=== PATIENT | male | born 1955 | race Caucasian/White ===

== ENCOUNTER → 2017-02-20 | Outpatient (CLI) | payer BC ==
[~2017-02-20] MED LIST: ASPEC325 PO; CLC6 PO; CLTP PO; INDO25CA14 PO; METO100T14 PO; MULT-506 PO; NTRGSL/4 SL; PRT40 PO; SIMV10TA2 PO
[2017-02-20 10:19] LABS: CHOLESTEROL/HDL RATIO 2.1
== END | disposition home or self-care (01) ==
LOC: C.LAB 08:40
PROVIDERS: ATTEND Internal Medicine Cardiovascular Disease
DX: I25.10 Atherosclerotic heart disease of native coronary artery without angina pectoris (principal)

== ENCOUNTER → 2017-03-25 | Outpatient (CLI) | payer BC | END | disposition home or self-care (01) | LOC: C.LABPVFM 15:24 | PROVIDERS: ATTEND Neuromusculoskeletal Medicine & OMM | DX: R19.7 Diarrhea, unspecified (principal); R10.31 Right lower quadrant pain ==

== ENCOUNTER → 2017-08-22 | Outpatient (CLI) | payer BC ==
[2017-08-22 09:49] LABS: AST/SGOT 22 U/L (15-37); BLOOD UREA NITROGEN 16 mg/dl (7-18); BUN/CREATININE RATIO 17.6 (10-20); CALCIUM 9.1 mg/dl (8.5-10.1); CARBON DIOXIDE 31 mmol/L (21-32); CHLORIDE 102 mmol/L (98-107); CREATININE 0.92 mg/dl (0.60-1.40); GLUCOSE 93 mg/dl (70-99); POTASSIUM 4.2 mmol/L (3.5-5.1); SODIUM 141 mmol/L (136-145)
[2017-08-22 09:52] LABS: ALT/SGPT 40 U/L (12-78); CHOLESTEROL 150 mg/dl (0-200); HDL CHOLESTEROL 75 mg/dl; LDL CHOLESTEROL CALCULATED 59 mg/dl; TRIGLYCERIDES 82 mg/dl (0-150); VERY LOW DENSITY LIPOPROT CALC 16 mg/dl
== END | disposition home or self-care (01) ==
LOC: C.LAB 08:19
PROVIDERS: ATTEND Internal Medicine Cardiovascular Disease
DX: I10 Essential (primary) hypertension (principal); I25.10 Atherosclerotic heart disease of native coronary artery without angina pectoris

== ENCOUNTER 2019-11-14 15:50 | Inpatient (IN) ==
[2019-11-14 16:37] LABS: Basophils # (auto) 0.03 K/uL (0-0.2); Basophils % (auto) 0.3 %; Eosinophils # (auto) 0.19 K/uL (0-0.5); Eosinophils % (auto) 2.1 %; Hemoglobin 15.6 g/dL (14.0-18.0); Immature Granulocytes # (auto) 0.02 K/uL (0.00-0.02); Immature Granulocytes % (auto) 0.2 %; Lymphocytes # (auto) 2.38 K/uL (1.2-3.4); Lymphocytes % (auto) 26.3 %; Mean Corpuscular Hemoglobin 31.3 pg (25-34); Mean Corpuscular Hgb Conc 34.7 g/dL (32-36); Mean Corpuscular Volume 90.4 fL (80-100); Monocytes # (auto) 0.68 K/uL (0.11-0.59); Monocytes % (auto) 7.5 %; Neutrophils # (auto) 5.74 K/uL (1.4-6.5); Neutrophils % (auto) 63.6 %; Platelet Count 300 K/uL (130-400); RDW Coefficient of Variation 14.4 % (11.5-14.5); RDW Standard Deviation 47.7 fL (36.4-46.3); Red Blood Count 4.98 M/uL (4.7-6.1); White Blood Count 9.04 K/uL (4.8-10.8)
--- NOTE | 2019-11-14 16:43 | XRay Report ---
XR chest 1V portable CLINICAL HISTORY: Chest Pain COMPARISON STUDY: Chest CT January 04, 2019. FINDINGS: Lung volumes are normal. Lungs are clear. There is no pneumothorax or pleural effusion. Car diac size is normal. Mediastinal contours are normal. There is no evidence for pulmonary edema. Note is made of median sternotomy wires and mediastinal surgical clips. IMPRESSION: No acute cardiopulmonary findings. ACT 112: Negative or not required by law. Electronically signed by: Danial Benson M.D. 11/14/2019 4:42 PM
[2019-11-14 16:48] LABS: INR 1.1 (0.9-1.1); Partial Thromboplastin Ratio 0.9; Partial Thromboplastin Time 24.4 Seconds (21.0-31.0); Prothrombin Time 10.9 Seconds (9.0-12.0)
[2019-11-14 16:56] LABS: Albumin Level 3.8 gm/dl (3.4-5.0); BUN Creatinine Ratio 15.3 (10-20); Calcium 8.9 mg/dl (8.5-10.1); Creatinine Clr Calc Pharmacy 62.5 ml/min; Est GFR (African American) 81.5; Est GFR (Non-African American) 70.4; Potassium 4.3 mmol/L (3.5-5.1)
[2019-11-14 17:19] LABS: Albumin Globulin Ratio 0.9 (0.9-2); Bilirubin,Total 0.4 mg/dl (0.2-1); Creatine Kinase MB 8.9 ng/ml (0.5-3.6); Globulin 4.1 gm/dl (2.5-4.0); Total Protein 7.9 gm/dl (6.4-8.2); Troponin I 3.58 ng/ml (0-0.045)
[2019-11-14] MEDS ORDERED: HEPARIN SODIUM/DEXTROSE 25,000 UNITS/500 ML BAG IV SCH (17:30)
[2019-11-14] MEDS ORDERED: HEPARIN SOD (PORCINE) 1000 UNIT/ML 10 ML VIAL ONE (17:39)
--- NOTE | 2019-11-14 18:08 | History & Physical Report ---
Date of Service November 14, 2019 Assessment & Plan (1) Non-ST elevation myocardial infarction (NSTEMI): Chest pain started around 9am today. Persistency worse around 3pm. Out of cardiac chest pain around 7:30pm after morphine given. Interestingly no EKG changes on initial EKG although possibly some developing ST depression in lateral leads on repeat. Patient already on heparin drip with bolus from ER Despite x2 nitroglycerin from ER 0.4mg SL he was still in 6/10 pain when seen. Given additional nitroglycerin 0.4mg SL and pain down to 5/10. Morphine 4mg IV eliminated pain from his neck, shoulder and arm but left with epigastric tightness (more gastrointestinal sounding pain). Discussed with ICU PA and he will be admitted to ICU and started on nitroglycerin drip. Troponin up trending - discussed with Dr Girard and recommended discussing with interventionalist regarding Brilinta Discussed with Dr Link and will starting Brilinta at this time in addition to nitro drip as above - since patient chest pain free at this point, no need for intervention emergently. (2) Gastritis: Epigastric pain left after morphine taken away chest pain and radiating pain to neck and arm. GI cocktail given with complete relief of epigastric pain. Will start on famotidine 20mg IV now then daily. (3) Peripheral vascular disease: Noted history of this. DP/PT b/l easily palpable. (4) Hypercholesterolemia: Continue simvastatin, will defer to cardiology to increase to high intensity statin as suspect there is a reason he is not on one already. (5) Osteoporosis: Hold calcium supplementation at this time. History of Present Illness Chief Complaint: Chest pain Primary Care Provider: JASMIN Gilbert Jeffrey is a 64 year old male with known CAD who presents to the ER with central chest pain that was not resolving. His pains started 2 days prior on exertion when shovelling the drive way. They went away with rest but he continued to shovel the drive way and kept working through some of the pain. The following morning he felt generally worse and sluggish for about half the day. He also had some burning sensation in his chest at rest at that point which was persistent for hours but eventually relieved without intervention. This morning he started having more intense chest pain again with rest starting at 9am but would resolve. At 3pm he had more intense severity 9/10 crushing chest pain at rest that radiated to his arm, shoulder and neck. In the ER he was given x2 nitroglycerin 0.4mg SL which brought his pain down to 6/10. He was started on a low dose heparin IV drip with bolus. When see by myself he was still having chest pain at rest radiating to his neck/shoulder/left arm. Third nitroglycerin given with only small relief. Morphine 4mg IV given with complete relief of his radiation substernal chest pain. Left with burning epigastric tightness which was subsequently relieved with GI cocktail. He has an extensive cardiac history with TX and x2 ZOEY to LAD and circumflex. CABGx5 in 2003. Interestingly he feels this episode is very similar to his episode of myopericarditis in 2014 although this pain (as was his pain back then apparently) was not positional in any way. Allergies Allergy/AdvReac Type Severity Reaction Status Date / Time No Known Allergies Allergy Verified 11/14/19 16:39 Home Medications Home Medications Medication Instructions Recorded Confirmed Type calcium carbonate-vitamin D3 1 tab PO QAM 12/18/18 11/14/19 History [Caltrate 600 + D] aspirin 325 mg tablet 325 mg PO DAILY tab 06/09/19 11/14/19 History metoprolol tartrate 100 mg tablet 100 mg PO BID #90 tab 06/28/19 11/14/19 Rx simvastatin 10 mg tablet 10 mg PO HS #90 tab 06/28/19 11/14/19 Rx Past Med/Surg History Medical History CAD (coronary artery disease) (Acute) Essential hypertension (Acute) Hypercholesterolemia (Acute) Hypothyroidism (Acute) Myopericarditis (2015) Osteoporosis (Acute) Peripheral vascular disease (Acute) Surgical History S/P CABG x 5 (2003) Social History Preferred Language: Irish Infrastructure Tech Required: No Beliefs That Will Affect Care: None Current Living Situation: Alone Feels Safe at Home: Yes Safety Concerns: Feels Safe At This Time Smoking Status: Never smoker Hx Alcohol Use: Yes Alcohol type: beer and wine Hx Substance Use: No Seatbelt Use: always Review of Systems Review of Systems: All systems reviewed & are unremarkable except as noted in HPI & below Physical Exam Constitutional: well developed and + acute distress (substernal chest pain); + not well nourished Eyes: + anicteric sclerae; normal pupil size ENMT: external ear and nose normal, oropharynx normal Neck: trachea midline, no thyromegaly Respiratory: normal respiratory effort, lungs clear to auscultation Cardiovascular: Rate/Rhythm: regular rate and regular rhythm Heart Sounds: normal S1 and normal S2; no gallop, no murmur and no cardiac rub Vessels: posterior tibial pulses present, dorsalis pedis pulses present and radial pulses present; no JVD Extremities: normal capillary refill; no calf tenderness and no pedal edema Gastrointestinal (Abdomen): Inspection/Auscultation: abdomen normal to inspection and normal bowel sounds; abdomen not distended Percussion/Palpation: + abdomen tender (epigastric) and abdomen soft; no guarding and abdomen not rigid Musculoskeletal: no cyanosis or clubbing, extremities motor strength 5/5 Skin: no rashes, warm and dry Neurologic: moves all extremities and awake; no focal motor deficits and not confused Speech / Cognition: normal speech Motor/Sensory: no tremor and no pronator drift Psychiatric: A+Ox3, euthymic affect Lymphatic: no cervical or axillary lymphadenopathy Results & Data Vital Signs (Past 12 Hours) Vital Signs Temp Pulse Resp BP Pulse Ox 11/14/19 16:13 99 11/14/19 16:00 36.6 C 78 22 138/86 98 Diagnostic Findings XR chest 1V portable IMPRESSION: No acute cardiopulmonary findings. ECG Indication: chest pain Rate (beats per minute): 68 Rhythm: normal sinus Findings: no acute ischemic change Comparison ECG Date: from (12/18/2018) Change: no significant change Code Status & VTE Plan Code Status Full as discussed with the patient VTE Prophylaxis Plan VTE Prophylaxis will be ordered: Yes Critical Care Time Critical Care Time: Yes Total Critical Care Time: 50 PG Care Time/CCT Total # of Minutes Spent Total Time Spent: 110 Total Time Spent with Patient: Total time spent is greater than 50% in coordination of care (as documented) at patient's floor/unit and/or counseling patient: Critical Care Time: Yes Total Critical Care Time: 50 Coding Level of Care Code 33393 Initial Inpt Care Lvl 3 Diagnoses Non-ST elevation myocardial infarction (NSTEMI) I21.4 Gastritis K29.00 Chronicity: acute Gastritis bleeding: without bleeding Gastritis type: unspecified gastritis Peripheral vascular disease I73.9 Hypercholesterolemia E78.00 Osteoporosis M81.0 Osteoporosis type: unspecified Presence of current pathological fracture: without current pathological fracture Additional Codes Critical Care Time - Critical Care Time: Yes ([id number]) (1) Osteoporosis Osteoporosis type: unspecified Presence of current pathological fracture: without current pathological fracture Qualified Code(s): M81.0 - Age-related osteoporosis without current pathological fracture (2) Gastritis Chronicity: acute Gastritis bleeding: without bleeding Gastritis type: unspecified gastritis Qualified Code(s): K29.00 - Acute gastritis without bleeding
[2019-11-14] MEDS ORDERED: NITROGLYCERIN SL 0.4 MG/TAB TAB SL STA (18:30)
[2019-11-14] MEDS ORDERED: MoRPHine SULFATE 4 MG/ML 1 ML CARP\\VIAL IV STA (18:30)
[2019-11-14] MEDS ORDERED: NITROGLYCERIN/D5W 100MCG/ML 250 ML IV SCH (19:15)
[2019-11-14] MEDS ORDERED: ALUMINUM/MAGNESIUM SUSP 18 ML, LIDOCAINE HCL VISCOUS 2% 6 ML, BARCODE IDENTIFIER 1 EA PO ONE (19:19)
[2019-11-14] MEDS ORDERED: FAMOTIDINE 20 MG in SYRINGE 3 ML IV STA (19:20)
[2019-11-14] MEDS ORDERED: MoRPHine SULFATE 2 MG/ML CARP IV PRN ×2 (19:23)
[2019-11-14] MEDS ORDERED: MoRPHine SULFATE 4 MG/ML 1 ML CARP\\VIAL IV PRN (19:23)
[2019-11-14] MEDS ORDERED: TICAGRELOR 90 MG TAB PO ONE (19:43)
[2019-11-14] MEDS ORDERED: ICU PROTOCOL FOR HYPERGLYCEMIA PRN (20:09)
--- NOTE | 2019-11-14 20:53 | Cardiology Consultation ---
Date of Consultation November 14, 2019 Assessment & Plan (1) Non-ST elevation myocardial infarction (NSTEMI): (2) CAD (coronary artery disease): Patient with known coronary artery disease (status post remote CABG) who also has a history of prior myopericarditis who now presents with chest pain, elevated troponin, and dynamic ECG. As noted, the picture was initially confusing given his completely normal ECG, however subsequent ECG showed some ST depression, strongly suggesting that this is ischemic chest pain rather than onset of a recurrent myopericarditis. Agree with the usual management including continuing aspirin, metoprolol, and simvastatin with initiation of ticagrelor (loading and routine dosing), heparin infusion, morphine as needed for pain, and IV nitroglycerin. Case discussed with Dr. Ruelas and Dr. Link (covering interventionalist). As noted, the patient will be medically managed overnight, if he were to develop progressive chest pain and ECG changes he should be sent for urgent cardiac catheterization. History of Present Illness Reason for Consultation: NSTEMI Requesting Physician: Garrett Ruelas MD Attending Physician: Garrett Ruelas MD History of Present Illness 64-year-old man with longstanding cardiac history admitted with chest pain, elevated troponin, and dynamic ECG changes. His cardiac history dates back to 1998 when he had a myocardial infarction and underwent stenting of his LAD and circumflex. In 2003 he underwent CABG x 5 as follows: -ZELAYA to LAD -Saphenous vein graft to first diagonal to distal LAD (jump graft) -Saphenous vein graft to OM1 -Saphenous vein graft to RCA In 2014 he was admitted to the hospital with chest pain, ultimately his troponin peaked at 7.7 and he developed ECG changes consistent with pericarditis, treated with colchicine and indomethacin with good response. Echocardiogram at that time showed EF 50 to 55% with no wall motion abnormalities. He was felt to have had a viral myopericarditis. He has been followed closely by Dr. Mcmahon and has been clinically stable for the past 5 years. He was doing well and physically active with no symptoms until 2 days ago when he developed some chest discomfort recurring intermittently. Today his symptoms became more severe and began radiating down his left arm, he tried to go for a walk but was stopped by chest pain and breathlessness. He presented to the ER with ongoing chest pain (up to 6/10 severity), an initial troponin of 3.5, and an initially unremarkable ECG. Given his past history, there was uncertainty as to whether this would be another presentation of myopericarditis (he noted very similar symptoms at that time) or myocardial ischemia. He was already on aspirin, he was treated with morphine, heparin drip, and ticagrelor and now notes that his chest pain has resolved, he has only mild epigastric burning (1/10) remaining. Of note, a second ECG showed anterolateral ST depression. Since the patient has shown marked clinical improvement since his presentation, will manage medically overnight with a low threshold for emergent catheterization if he has increasing pain with progressive ECG changes. Allergies Allergy/AdvReac Type Severity Reaction Status Date / Time No Known Allergies Allergy Verified 11/14/19 16:39 Home Medications Home Medications Medication Instructions Recorded Confirmed Type calcium carbonate-vitamin D3 1 tab PO QAM 12/18/18 11/14/19 History [Caltrate 600 + D] aspirin 325 mg tablet 325 mg PO DAILY tab 06/09/19 11/14/19 History metoprolol tartrate 100 mg tablet 100 mg PO BID #90 tab 06/28/19 11/14/19 Rx simvastatin 10 mg tablet 10 mg PO HS #90 tab 06/28/19 11/14/19 Rx Patient History Medical History (Updated 11/14/19 @ 21:32 by Rodrigo Girard MD) CAD (coronary artery disease) (Acute) Essential hypertension (Acute) Hypercholesterolemia (Acute) Hypothyroidism (Acute) Myopericarditis (2015) Osteoporosis (Acute) Peripheral vascular disease (Acute) Surgical History (Updated 11/14/19 @ 21:20 by Rodrigo Girard MD) S/P CABG x 5 (2003) Social History Preferred Language: Greenlandic Endoscopy Tech Required: No Beliefs That Will Affect Care: None Current Living Situation: Alone Feels Safe at Home: Yes Safety Concerns: Feels Safe At This Time Smoking Status: Never smoker Hx Alcohol Use: Yes Alcohol type: beer and wine Hx Substance Use: No Seatbelt Use: always Review of Systems Constitutional: no fever, no chills, no fatigue, no weight loss and no weight gain Eyes: no problem reported Ear, Nose, Mouth, Throat: no problem reported Respiratory: no cough and no dyspnea Cardiovascular: as per Subjective / HPI Gastrointestinal: no abdominal pain and no change in stools Musculoskeletal: no myalgia Integumentary: no rash and no new lesions Neurologic: no falls and no syncope Psychiatric: no problem reported Hematologic / Lymphatic: no easy bleeding and no easy bruising Physical Exam Physical Exam: No distress. Skin: no ecchymoses or generalized lesions. HEENT: unremarkable. Neck: no JVD or carotid bruits. Lungs clear. Cardiac: regular rhythm and no murmur or gallop. No rub. Abdomen benign. Extremities: no edema, pulses brisk. Neurologic: normal affect, nonfocal. Results & Data Laboratory Results 11/14/19 11/14/19 16:15 18:57 Creatinine 1.09 Total Creatine Kinase 183 CK-MB (CK-2) 8.9 H Troponin I 3.580 H* 4.060 H* Diagnostic Findings Initial ECG at 4 PM showed sinus rhythm and was completely unremarkable. A second ECG near 7 PM showed [address] depression. Neither ECG showed any ST elevation. PG Care Time/CCT Total # of Minutes Spent Total Time Spent with Patient: Total time spent is greater than 50% in coordination of care (as documented) at patient's floor/unit and/or counseling patient: Coding Level of Care Code 77660 Inpt Consult Level 4 Diagnoses Non-ST elevation myocardial infarction (NSTEMI) I21.4 CAD (coronary artery disease) I25.10
[2019-11-14] MEDS: METOPROLOL TARTRATE 100 MG TAB PO SCH (20:54)
--- NOTE | 2019-11-14 21:06 | Critical Care Consultation ---
Date of Consultation November 14, 2019 Assessment & Plan (1) Admitted to intensive care unit: Reason Critically Ill: 64-year-old male with significant history of cardiovascular disease status post CABG x5 presenting with ongoing chest discomfort with elevated troponin without significant EKG changes. Requiring heparin and nitroglycerin drips for symptomatic management. Requiring close hemodynamic monitoring. NEURO - * CAM ICU: NEGATIVE * Pain: Titrate nitroglycerin as needed. Morphine as needed. CARDIAC/VASCULAR - * NSTEMI: * Concerning in the setting of known significant CAD s/p PTCI --> CABG x5. * Climbing troponins. Will continue to trend. * Heparin and Nitro gtts currently. * Monitor closely for pain/EKG changes to suggested need for emergent intervention. * Appreciate cardiology recommendations. * EKG: NSR@72bpm w/ slight ST depressions laterally. QTc 427ms. * Monitor on telemetry. RESPIRATORY - * No h/o pulmonary disease. * Saturating well on room air. GI/NUTRITION - * AHA diet RENAL/LYTES - * No significant electrolyte derangements. - * No concerns at this time. * Strict I&Os. ENDO - * No h/o DM * BSGs per unit protocol. ISS --> gtt per unit policy. HEME - * Stable H&H. * Monitor for s/s bleeding while on heparin gtt. ID - * Pervious h/o myopericarditis. * Hx not concerning for return of s/s at this time. EKG more suggestive of ischemic etiology of pain. * Trend fever curve. LINES/IV ACCESS - * PIVs x2 DVT PROPHYLAXIS - * Heparin gtt. * SCDs I have personally spent 35 minutes of critical care time in the direct management of this patient. This is a life/limb threatening event. This includes time spent evaluating patient, direct bedside care, chart review, placing orders, interpretation of diagnostic studies, discussion with consultants, patient, and family members, as well as other required patient management activities. This time is exclusive of all separately billable procedures, and teaching time and separate from and in addition to any other critical care service time. Thank you for allowing us to participate in the care of this patient. Please refer to my attending physician's documentation for any further recommendations. (2) Non-ST elevation myocardial infarction (NSTEMI): (3) Chest pain: (4) Elevated troponin: (5) Peripheral vascular disease: (6) Hypothyroidism: (7) Hypercholesterolemia: (8) Essential hypertension: (9) CAD (coronary artery disease): History of Present Illness Attending Physician: Garrett Ruelas MD History of Present Illness Patient is a 64-year-old male with significant past medical history of coronary artery disease, hypertension, hyperlipidemia, hypothyroidism, and peripheral vascular disease who presented to the emergency department with central chest pain with radiation to the LEFT-sided shoulder and arm. Patient initially underwent PTCI in [id number] with CABG x5 in 2004. In 2015, the patient had myopericarditis for which she has had no residual complications to this point. He states that his symptoms today feel similar to his myopericarditis presentation. The patient was without significant EKG changes on presentation. He was noted to have some slight ST depression laterally on repeat EKG with persistent chest pain. His troponin was elevated at greater than 2. He did receive discomfort relief with combination of nitroglycerin drip and PRN morp ben. He is without ST segment elevations at this time. Upon arrival in the ICU, the patient is awake, alert, and oriented. He reports that he has been noticing occasional "stingers" of central chest pain which occur randomly with activity. He states that on Friday he had felt fine, but on Friday and Friday he was shoveling snow and noticed persistent non-remitting central chest pain with radiation to the LEFT-sided jaw and arm. This prompted visit today. Patient states that this point he is without any chest pain rating his discomfort is 0/10. He denies any recent upper respiratory infections. No fevers or chills. No nasal congestion or cough. He currently denies any headaches, dizziness, lightheadedness, palpitations, shortness of breath, pleuritic pain, nausea, vomiting, abdominal pain, or numbness/weakness to the extremities. Allergies Allergy/AdvReac Type Severity Reaction Status Date / Time No Known Allergies Allergy Verified 11/14/19 16:39 Home Medications Home Medications Medication Instructions Recorded Confirmed Type calcium carbonate-vitamin D3 1 tab PO QAM 12/18/18 11/14/19 History [Caltrate 600 + D] aspirin 325 mg tablet 325 mg PO DAILY tab 06/09/19 11/14/19 History metoprolol tartrate 100 mg tablet 100 mg PO BID #90 tab 06/28/19 11/14/19 Rx simvastatin 10 mg tablet 10 mg PO HS #90 tab 06/28/19 11/14/19 Rx Patient History Medical History CAD (coronary artery disease) (Acute) Essential hypertension (Acute) Hypercholesterolemia (Acute) Hypothyroidism (Acute) Myopericarditis (2015) Osteoporosis (Acute) Peripheral vascular disease (Acute) Surgical History S/P CABG x 5 (2004) Social History Preferred Language: Korean Pediatric Hospitalist Required: No Beliefs That Will Affect Care: None Current Living Situation: Alone Feels Safe at Home: Yes Safety Concerns: Feels Safe At This Time Smoking Status: Never smoker Hx Alcohol Use: Yes Alcohol type: beer and wine Hx Substance Use: No Seatbelt Use: always Review of Systems Review of Systems: A complete 10 point review of systems was reviewed with the patient with pertinent positives and negatives as per history of present illness. All else were negative. Physical Exam Physical Exam: VITAL SIGNS - Vital signs and nursing notes were reviewed. GENERAL - 64-year-old male appearing younger than his stated age who is in no acute distress. Communicates well with provider and answers questions appropriately. HEAD - NC/AT. EYES - PERRL with EOMI bilaterally. Sclera anicteric. Palpebral conjunctiva pink and moist with no injection noted. EARS - No deformities of external structures noted on gross examination bilaterally. NOSE - Midline and without cyanosis. No epistaxis or purulent drainage noted. MOUTH/OROPHARYNX - Without perioral cyanosis. Buccal mucosa pink and moist and without leukoplakia. Tongue midline with equal elevation of palate bilaterally. No tonsillar hypertrophy, erythema, or exudates noted. Good dentition noted. NECK - Neck with FROM. Supple to palpation without JVD. LUNGS - Chest wall symmetric without accessory muscle use, intercostals retractions, or central cyanosis. Normal vesicular breath sounds CTA B/L. No wheezes, rales, or rhonchi appreciated. CARDIAC - RRR with S1/S2. No murmur, rubs, or gallops appreciated. No reproducible tenderness to palpation appreciated over the anterior chest wall. ABDOMEN - Abdominal contour flat without pulsations or visible masses. BS nor moactive all four quadrants. No tenderness, palpable masses, hepatosplenomegaly, or ascites noted. EXTREMITIES - No clubbing or peripheral cyanosis. No pretibial edema present. +3/5 radial and dorsalis pedis pulses palpated throughout. +5/5 strength noted in UE/LE bilaterally. NEUROLOGIC - Cranial nerves II through XII grossly intact. Sensory intact to light touch throughout. PSYCH - A&Ox3 and cooperates fully with examiner. Pt is very pleasant and interacts well with examiner. Results & Data ([facility]) Vital Signs (Past 12 Hours) Vital Signs Temp Pulse Pulse Resp BP BP Pulse Ox 11/14/19 19:55 36.4 C L 73 18 139/90 99 11/14/19 19:41 72 18 131/85 97 11/14/19 19:06 77 18 130/80 97 11/14/19 18:56 73 18 127/78 96 11/14/19 18:42 73 20 142/88 H 99 11/14/19 18:30 69 20 151/87 H 99 11/14/19 18:00 71 12 134/82 100 11/14/19 17:42 70 22 133/85 99 11/14/19 17:18 74 19 138/86 99 11/14/19 16:13 99 11/14/19 16:01 73 22 138/86 99 11/14/19 16:00 36.6 C 78 22 138/86 98 Coding Level of Care Code Critical Care 1st 30-74 mins Diagnoses Admitted to intensive care unit Z78.9 Non-ST elevation myocardial infarction (NSTEMI) I21.4 Chest pain R07.9 Chest pain type: unspecified Elevated troponin R79.89 Peripheral vascular disease I73.9 Hypothyroidism E03.9 Hypercholesterolemia E78.00 Essential hypertension I10 CAD (coronary artery disease) I25.10 Time Spent (min) 35 (1) Chest pain Chest pain type: unspecified Qualified Code(s): R07.9 - Chest pain, unspecified
--- NOTE | 2019-11-14 22:23 | Emergency Department Note ---
Entered by Kathe Awad acting as a scribe for History of Present Illness General Chief complaint: Chest Pain Stated complaint: CHEST DISCOMFORT Time Seen by Provider: 11/14/19 16:05 History of Present Illness Provider complaint: chest pain Onset (ago): day(s) 2 Location: chest Radiation: neck and other (left shoulder) Pain Consistency: + other (episode) Maximum Pain Intensity: 6 Quality: + burning Relieved By: not by medication Associated symptoms: + denies other symptoms (abdominal pain) and + other (fatigued); no shortness of breath Treatments prior to arrival: other (324 mg Aspirin and 2 Nitroglycerin ) The patient is a 64 year old male who presents to the ED with complaints of an episode of chest pain that started 2 days ago. The patient describes the pain as a burning and states that it radiates into his left shoulder and neck. The patient notes that she feels much more fatigued than usual. The patient denies abdominal pain and shortness of breath. Per nursing staff, the patient received 324 mg Aspirin and 2 Nitroglycerin en route. The patient denies relief from these medications. Home Medications Home Medications Medication Instructions Recorded Confirmed Type calcium carbonate-vitamin D3 1 tab PO QAM 12/18/18 11/14/19 History [Caltrate 600 + D] aspirin 325 mg tablet 325 mg PO DAILY tab 06/09/19 11/14/19 History metoprolol tartrate 100 mg tablet 100 mg PO BID #90 tab 06/28/19 11/14/19 Rx simvastatin 10 mg tablet 10 mg PO HS #90 tab 06/28/19 11/14/19 Rx Allergies Allergy/AdvReac Type Severity Reaction Status Date / Time No Known Allergies Allergy Verified 11/14/19 16:39 Past Med/Surg History Medical History CAD (coronary artery disease) (Acute) Essential hypertension (Acute) Hypercholesterolemia (Acute) Hypothyroidism (Acute) Myopericarditis (2015) Osteoporosis (Acute) Peripheral vascular disease (Acute) Surgical History S/P CABG x 5 (2003) Social History Preferred Language: Sinhala 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 and A total of 10 systems reviewed and were otherwise negative Physical Exam Vital Signs Vital Signs - 24 hr 11/14/19 16:00 11/14/19 16:01 11/14/19 16:13 Temperature 36.6 C Temperature Source Oral Pulse Rate 78 73 Pulse Rate [Bilateral Apical] Pulse Rate from SpO2 Sensor 75 Pulse Rhythm Regular Pulse Strength Normal Respiratory Rate 22 22 Respiratory Effort / Characteristics Non-Labored Spontaneous Respiratory Depth Normal Respiratory Pattern Regular Blood Pressure 138/86 138/86 Blood Pressure [Right Arm] Blood Pressure Mean 103 101 Blood Pressure Mean [Right Arm] Blood Pressure Position Lying Pulse Oximetry 98 99 99 Oxygen Delivery Method Room Air Room Air Sepsis Recent Fever Within 48 Hours No Sepsis New/Unexplained Change in Mental Status No Sepsis Action Taken by Nursing No Action Required 11/14/19 17:18 11/14/19 17:42 11/14/19 18:00 Temperature Temperature Source Pulse Rate 74 70 71 Pulse Rate [Bilateral Apical] Pulse Rate from SpO2 Sensor 74 69 67 Pulse Rhythm Pulse Strength Respiratory Rate 19 22 12 Respiratory Effort / Characteristics Respiratory Depth Respiratory Pattern Blood Pressure 138/86 133/85 134/82 Blood Pressure [Right Arm] Blood Pressure Mean 101 110 110 Blood Pressure Mean [Right Arm] Blood Pressure Position Pulse Oximetry 99 99 100 Oxygen Delivery Method Sepsis Recent Fever Within 48 Hours Sepsis New/Unexplained Change in Mental Status Sepsis Action Taken by Nursing 11/14/19 18:30 11/14/19 18:42 11/14/19 18:56 Temperature Temperature Source Pulse Rate 69 73 Pulse Rate [Bilateral Apical] 73 Pulse Rate from SpO2 Sensor 71 72 Pulse Rhythm Pulse Strength Respiratory Rate 20 20 18 Respiratory Effort / Characteristics Respiratory Depth Respiratory Pattern Blood Pressure 151/87 H 142/88 H Blood Pressure [Right Arm] 127/78 Blood Pressure Mean 111 100 Blood Pressure Mean [Right Arm] 94 Blood Pressure Position Pulse Oximetry 99 99 96 Oxygen Delivery Method Room Air Sepsis Recent Fever Within 48 Hours Sepsis New/Unexplained Change in Mental Status Sepsis Action Taken by Nursing 11/14/19 19:06 Temperature Temperature Source Pulse Rate Pulse Rate [Bilateral Apical] 77 Pulse Rate from SpO2 Sensor Pulse Rhythm Pulse Strength Respiratory Rate 18 Respiratory Effort / Characteristics Respiratory Depth Respiratory Pattern Blood Pressure Blood Pressure [Right Arm] 130/80 Blood Pressure Mean Blood Pressure Mean [Right Arm] 96 Blood Pressure Position Pulse Oximetry 97 Oxygen Delivery Method Room Air Sepsis Recent Fever Within 48 Hours Sepsis New/Unexplained Change in Mental Status Sepsis Action Taken by Nursing GENERAL: Patient is awake, alert, and in no acute distress.Patient is resting comfortably and showing no signs of anxiety EYES: The conjunctivae are clear. The pupils are round and reactive. EARS, NOSE, MOUTH AND THROAT: The nose is without any evidence of any deformity. Mucous membranes are moist.Tongue is midline NECK: The neck is nontender and supple. RESPIRATORY: Normal respiratory effort is noted. There is no evidence of wheezing rhonchi or rales to auscultation. CARDIOVASCULAR: Regular rate and rhythm noted. There no murmurs rubs or gallops normal S1 normal S2 GASTROINTESTINAL: The abdomen is soft. Bowel sounds are present in all quadrants. Abdomen is nontender. MUSCULOSKELETAL/EXTREMITIES: There is no evidence of gross deformity. Full range of motion is noted in the hips and shoulders. SKIN: There is no obvious evidence of any rash. There are no petechiae, pallor or cyanosis noted. NEUROLOGIC: Patient is awake alert and oriented x3. Course Course 1607: Past medical records reviewed. The patient was evaluated in room A02. A complete history and physical exam was performed. 1724: I updated the patient on his test results at this time. He is resting comfortably. 1756: I discussed the patient's case with Dr. Chacorta HENAO Hospitalist. He will evaluate the patient for further management. 1802: I updated the patient on the plan for admission. He verbally agrees and understands. He states that he is still having pain after recieving Heparin. 1813: I discussed the patient's case with Dr. Martinez Cardiology. He recommends following Troponins. Consultations Consultation #1: I discussed the patient's case with Dr. Chacorta HENAO Hospitalist. He will evaluate the patient for further management. Time: 17:56 Consultation #2: I discussed the patient's case with Dr. Martinez Cardiology. He recommends following Troponins. Time: 18:13 Administered Medications Heparin Sodium/Dextrose (Heparin Sodium/Dextrose) 25,000 units in 500 mls @ 24 mls/hr IV .[id number] [facility]; Protocol Stop: 12/14/19 17:29 Last Titration: 11/15/19 00:16 Dose: 1,050 units/hr, 21 mls/hr Documented by: [id number] Cosigned by: [id number] Admin: 11/14/19 17:44 Dose: 1,200 units/hr, 24 mls/hr Documented by: [id number] Cosigned by: [id number] Nitroglycerin/Dextrose (Nitroglycerin/D5w 100 Mcg/Ml) 250 mls @ 3 mls/hr IV .Q24H [facility]; Protocol Stop: 12/14/19 19:14 Last Admin: 11/14/19 20:36 Dose: 5 mcg/min, 3 mls/hr Documented by: [id number] Cosigned by: [id number] Metoprolol Tartrate (Lopressor) 100 mg PO BID [facility] Stop: 12/14/19 20:59 Last Admin: 11/14/19 20:54 Dose: 100 mg Documented by: [id number] Discontinued Medications Al Hydrox/Mg Hydrox/Simethicone 18 ml/ Lidocaine HCl 6 ml/ BARCODE IDENTIFIER 1 ea 0 ml PO ONE ONE Stop: 11/14/19 19:20 Last Admin: 11/14/19 20:54 Dose: 24 ml Documented by: [id number] Heparin Sodium (Porcine) (Heparin Iv Bolus) Confirm Administered Dose 10,000 units .ROUTE .STK-MED ONE Stop: 11/14/19 17:40 Last Admin: 11/14/19 17:45 Dose: 5,000 units Documented by: [id number] Cosigned by: [id number] Heparin Sodium/Dextrose () 1 ea IV NOW STA; Protocol Stop: 11/14/19 17:23 Last Admin: 11/14/19 17:48 Dose: Not Given Documented by: [id number] Famotidine 20 mg/ Syringe 5 mls @ 2.5 mls/min IV ONE STA Stop: 11/14/19 19:21 Last Admin: 11/14/19 21:41 Dose: 2.5 mls/min Documented by: [id number] Morphine Sulfate (Morphine Sulfate) 4 mg IV NOW STA Stop: 11/14/19 18:31 Last Admin: 11/14/19 18:56 Dose: 4 mg Documented by: [id number] Nitroglycerin (Nitrostat) 0.4 mg SL NOW STA Stop: 11/14/19 18:31 Last Admin: 11/14/19 18:42 Dose: 0.4 mg Documented by: [id number] Ticagrelor (Brilinta) 180 mg PO ONE ONE Stop: 11/14/19 19:44 Last Admin: 11/14/19 20:54 Dose: 180 mg Documented by: [id number] Critical Care Time Critical Care Time: Yes Total Critical Care Time: 60 I have personally spent greater than 60 minutes of critical care time in the direct management of this patient. This includes bedside care, interpretation o f diagnostic studies, and testing, discussion with consultants, patient, and family members, and other required patient management activities. This 60 minutes is in excess of all separately billable procedures. Medical Decision Making Differential Diagnosis Differential diagnosis: Etiologies such as shingles, musculoskeletal pain, pericarditis, myocarditis, cardiac ischemia, pericardial tamponade, pneumonia, pneumothorax, pleural effusion, hemothorax, pleurisy, aortic pathology, pulmonary embolism, intra- abdominal process, as well as others were considered. Medical Records Attestation: I reviewed the patient's medical records. Home Medications Current Medication List: was personally reviewed by me Laboratory Data Attestation: I reviewed the patient's lab results. Result diagrams: 11/14/19 16:15 11/14/19 16:15 Lab Results 11/14/19 11/14/19 11/14/19 Range/Units 16:15 16:15 16:15 WBC 9.04 (4.8-10.8) K/uL RBC 4.98 (4.7-6.1) M/uL Hgb 15.6 (14.0-18.0) g/dL Hct 45.0 (42-52) % MCV 90.4 (80-100) fL MCH 31.3 (25-34) pg MCHC 34.7 (32-36) g/dL RDW Std Deviation 47.7 H (36.4-46.3) fL RDW Coeff of Roc 14.4 (11.5-14.5) % Plt Count 300 (130-400) K/uL MPV 10.0 (7.4-10.4) fL Immature Gran % (Auto) 0.2 % Neut % (Auto) 63.6 % Lymph % (Auto) 26.3 % Cassia % (Auto) 7.5 % Eos % (Auto) 2.1 % Baso % (Auto) 0.3 % Immature Gran # (Auto) 0.02 (0.00-0.02) K/uL Neut # (Auto) 5.74 (1.4-6.5) K/uL Lymph # (Auto) 2.38 (1.2-3.4) K/uL Cassia # (Auto) 0.68 H (0.11-0.59) K/uL Eos # (Auto) 0.19 (0-0.5) K/uL Baso # (Auto) 0.03 (0-0.2) K/uL PT 10.9 (9.0-12.0) Seconds INR 1.1 (0.9-1.1) APTT 24.4 (21.0-31.0) Seconds PTT Ratio 0.9 Sodium 138 (136-145) mmol/L Potassium 4.3 (3.5-5.1) mmol/L Chloride 105 (98-107) mmol/L Carbon Dioxide 30 (21-32) mmol/L Anion Gap 3.0 (3-11) BUN 17 (7-18) mg/dl Creatinine 1.09 (0.6-1.4) mg/dl Est Cr Clr Drug Dosing 62.5 ml/min Est GFR ( Amer) 81.5 Est GFR (Non-Af Amer) 70.4 BUN/Creatinine Ratio 15.3 (10-20) Glucose 84 (70-99) mg/dl Calcium 8.9 (8.5-10.1) mg/dl Total Bilirubin 0.4 (0.2-1) mg/dl AST 39 H (15-37) U/L ALT 32 (12-78) U/L Alkaline Phosphatase 80 (45-117) U/L Total Creatine Kinase 183 (39-308) U/L CK-MB (CK-2) 8.9 H (0.5-3.6) ng/ml CK/CKMB % Calc 4.9 H (0-3.0) Troponin I 3.580 H* (0-0.045) ng/ml Total Protein 7.9 (6.4-8.2) gm/dl Albumin 3.8 (3.4-5.0) gm/dl Globulin 4.1 H (2.5-4.0) gm/dl Albumin/Globulin Ratio 0.9 (0.9-2) Lipase 194 (73-393) U/L 11/14/19 Range/Units 18:57 WBC (4.8-10.8) K/uL RBC (4.7-6.1) M/uL Hgb (14.0-18.0) g/dL Hct (42-52) % MCV (80-100) fL MCH (25-34) pg MCHC (32-36) g/dL RDW Std Deviation (36.4-46.3) fL RDW Coeff of Roc (11.5-14.5) % Plt Count (130-400) K/uL MPV (7.4-10.4) fL Immature Gran % (Auto) % Neut % (Auto) % Lymph % (Auto) % Cassia % (Auto) % Eos % (Auto) % Baso % (Auto) % Immature Gran # (Auto) (0.00-0.02) K/uL Neut # (Auto) (1.4-6.5) K/uL Lymph # (Auto) (1.2-3.4) K/uL Cassia # (Auto) (0.11-0.59) K/uL Eos # (Auto) (0-0.5) K/uL Baso # (Auto) (0-0.2) K/uL PT (9.0-12.0) Seconds INR (0.9-1.1) APTT (21.0-31.0) Seconds PTT Ratio Sodium (136-145) mmol/L Potassium (3.5-5.1) mmol/L Chloride (98-107) mmol/L Carbon Dioxide (21-32) mmol/L Anion Gap (3-11) BUN (7-18) mg/dl Creatinine (0.6-1.4) mg/dl Est Cr Clr Drug Dosing ml/min Est GFR ( Amer) Est GFR (Non-Af Amer) BUN/Creatinine Ratio (10-20) Glucose (70-99) mg/dl Calcium (8.5-10.1) mg/dl Total Bilirubin (0.2-1) mg/dl AST (15-37) U/L ALT (12-78) U/L Alkaline Phosphatase (45-117) U/L Total Creatine Kinase (39-308) U/L CK-MB (CK-2) (0.5-3.6) ng/ml CK/CKMB % Calc (0-3.0) Troponin I 4.060 H* (0-0.045) ng/ml Total Protein (6.4-8.2) gm/dl Albumin (3.4-5.0) gm/dl Globulin (2.5-4.0) gm/dl Albumin/Globulin Ratio (0.9-2) Lipase (73-393) U/L Imaging Data Radiologist's Impression: Radiology results as stated below per my review and the radiologist's interpretation: XR chest 1V portable CLINICAL HISTORY: Chest Pain COMPARISON STUDY: Chest CT January 04, 2019. FINDINGS: Lung volumes are normal. Lungs are clear. There is no pneumothorax or pleural effusion. Cardiac size is normal. Mediastinal contours are normal. There is no evidence for pulmonary edema. Note is made of median sternotomy wires and mediastinal surgical clips. IMPRESSION: No acute cardiopulmonary findings. ACT 112: Negative or not required by law. Electronically signed by: Danial Benson M.D. 11/14/2019 4:42 PM ECG Data Attestation: I personally reviewed and interpreted this ECG as follows: Indication: + chest pain Rate (beats per minute): 68 Rhythm: + normal sinus ECG ST segments: + Normal ST segments ECG Findings: no PACs and no PVCs Comparison ECG Date: from (12/18/2018) Change: no significant change Additional Comments: PREHOSPITAL EKG: Rate: 80 Rhythm: Normal sinus rhythm Findings: No ectopy, no ST segment abnormalities. Blood Pressure Blood Pressure Findings: Elevated blood pressure Blood Pressure Disposition: further management by hospitalist TORIBIO Garcia The patient is a 64-year-old male who presented to the emergency department for an evaluation of chest pain. The patient started having chest pain a few days ago. The pain became worse today and would not relieved with his usual medications. The patient was treated with aspirin and nitroglycerin prior to arrival. The patient's prehospital EKG as well as his EKG in the emergency department did not show any acute ischemic changes from previous. He was found to have an elevated troponin in the emergency department. I discussed the patient's laboratory and radiographic studies with him. I did review the patient's admission to our facility last fall where he had a very similar presentation. I discussed his case with the on-call [facility] hospitalist. I also discussed his case with the on-call [facility] janitorial account manager. The p bernadette was placed on heparin. He did have some improvement of his symptoms while he was in the emergency department. Likely the patient will require serial troponins and then further work-up to determine if this is a presentation which would require intervention with cardiology involvement. The patient was agreeable to this plan. Impression & Plan Non-ST elevation myocardial infarction (NSTEMI), Chest pain, Elevated troponin Discharge Plan Visit Data *Final* Discharge Date/Time: 11/14/19 19:42 Chief Complaint: Chest Pain Stated Complaint: CHEST DISCOMFORT ED Provider: Hernan Peace Discharge Problem: Non-ST elevation myocardial infarction (NSTEMI), Chest pain, Elevated troponin Patient Disposition: Admitted As Inpatient Discharge Instructions Interventions: ED Discharge Assessment Last Done: 11/14/19 19:42 Discharge Problem: Chest pain Qualifiers: Chest pain type: unspecified Qualified Code(s): R07.9 - Chest pain, unspecified The scribe's documentation has been prepared under my direction and personally reviewed by me in its entirety. I confirm that the note above accurately reflects all work, treatment, procedures, and medical decision making performed by me.
[2019-11-14 23:57] LABS: Partial Thromboplastin Ratio 2.8
[2019-11-15 00:04] LABS: Partial Thromboplastin Time 76.9 Seconds (21.0-31.0)
[2019-11-15] MEDS ORDERED: ONDANSETRON INJ 2 MG/ML 2 ML VIAL IV PRN (03:14)
[2019-11-15] MEDS ORDERED: ONDANSETRON INJ 2 MG/ML 2 ML VIAL ONE (03:16)
[2019-11-15 04:48] LABS: Basophils # (auto) 0.02 K/uL (0-0.2); Basophils % (auto) 0.2 %; Eosinophils # (auto) 0.17 K/uL (0-0.5); Eosinophils % (auto) 1.8 %; Hematocrit (blood only) 43.1 % (42-52); Hemoglobin 14.5 g/dL (14.0-18.0); Immature Granulocytes # (auto) 0.03 K/uL (0.00-0.02); Immature Granulocytes % (auto) 0.3 %; Lymphocytes # (auto) 1.44 K/uL (1.2-3.4); Lymphocytes % (auto) 15.2 %; Mean Corpuscular Hemoglobin 30.8 pg (25-34); Mean Corpuscular Hgb Conc 33.6 g/dL (32-36); Mean Corpuscular Volume 91.5 fL (80-100); Mean Platelet Volume 10.3 fL (7.4-10.4); Monocytes # (auto) 0.66 K/uL (0.11-0.59); Neutrophils # (auto) 7.17 K/uL (1.4-6.5); Neutrophils % (auto) 75.5 %; Platelet Count 233 K/uL (130-400); RDW Coefficient of Variation 14.5 % (11.5-14.5); RDW Standard Deviation 49.4 fL (36.4-46.3); Red Blood Count 4.71 M/uL (4.7-6.1); White Blood Count 9.49 K/uL (4.8-10.8)
[2019-11-15 05:09] LABS: BUN Creatinine Ratio 17.1 (10-20); Est GFR (African American) 106.8; Est GFR (Non-African American) 92.1; Magnesium 2.1 mg/dl (1.8-2.4)
[2019-11-15 05:20] LABS: Phosphorus 2.7 mg/dl (2.5-4.9); Troponin I 2.81 ng/ml (0-0.045)
[2019-11-15 06:43] LABS: Partial Thromboplastin Ratio 2.1
[2019-11-15 06:50] LABS: Partial Thromboplastin Time 57.5 Seconds (21.0-31.0)
[2019-11-15] MEDS: TICAGRELOR 90 MG TAB PO SCH ×2 (07:55→21:10)
[2019-11-15] MEDS: METOPROLOL TARTRATE 100 MG TAB PO SCH ×2 (08:00→21:10)
[2019-11-15] MEDS ORDERED: PERFLUTREN LIPID MICROSPHERE (DEFINITY) IV ONE (08:03)
--- NOTE | 2019-11-15 08:15 | Critical Care Progress Note ---
Date of Service November 15, 2019 Assessment & Plan (1) Non-ST elevation myocardial infarction (NSTEMI): Reason Critically Ill: Mr. Murphy is a 64-year-old male with significant history of cardiovascular disease status post CABG x5, hypertension, hyperlipidemia, and peripheral vascular disease presenting with ongoing chest discomfort with elevated troponin without significant EKG changes. Requiring heparin and nitroglycerin drips for symptomatic management. Requiring close hemodynamic monitoring. NEURO - CAM ICU: NEGATIVE Pain: Titrate nitroglycerin as needed. Morphine as needed. CARDIAC/VASCULAR - NSTEMI vs. myocarditis Chest pain concerning in the setting of known significant CAD s/p PTCI --> CABG x5. Troponin peaked at 4.06 and is now downtrending Continue heparin and Nitro gtts Patient to go for cardiac catheterization this afternoon Will make changes to home ASA and statin dosages based on catheterization results Continue aspirin, ticagrelor and metoprolol Cardiology following, appreciate recommendations ECHO - EF 50-55%, no RMWA EKG: NSR@72bpm w/ slight ST depressions laterally. QTc 427ms. Monitor on telemetry. RESPIRATORY - No h/o pulmonary disease. Saturating well on room air. GI/NUTRITION - NPO GI prophylaxis with 20mg IV famotidine RENAL/LYTES - No significant electrolyte derangements. - No concerns at this time. ENDO - No h/o DM BSGs per unit protocol. ISS --> gtt per unit policy. HEME - Stable H&H. Monitor for s/s bleeding while on heparin gtt. ID - Previous h/o myopericarditis. Afebrile, no URI symptoms. Suspect more likely ischemic etiology of pain. LINES/IV ACCESS - PIVs x2 DVT PROPHYLAXIS - Heparin gtt. SCDs Thank you for allowing us to participate in the care of this patient. Please refer to my attending physician's documentation for any further recommendations. Admission and Anticipated Discharge Date Admission Date: November 14, 2019 Supervising Physician Co-Signing Physician Notes Dr. Craft was resident physician during care of patient. I separately evaluated patient for henry portions of the history and the exam. I was present during the critical portion of medical decision making, and I discussed the case with the resident. I generally agree with the findings and plan. Concern for perimyocarditis, discussed with Dr. Estrada. Patient had a stent placed. Post procedure he there has been significant nausea. Continued ICU observation for possible reperfusion syndrome. Patient critically ill due to acute coronary syndrome. Subjective Mr. Murphy denies any further episodes of chest pain, palpitations or shortness of breath. He endorsed one episode of vomiting when he got up to use the commode overnight, but otherwise reports feeling well. He states the chest pain he had from Friday-Friday was reminiscent of the pain he had with an episode of myocarditis in 2014, however he denies any recent URI symptoms. Review of Systems Constitutional: no fever and no chills Respiratory: no cough and no dyspnea Cardiovascular: no chest pain, no palpitations, no lightheadedness, no edema and no calf pain Gastrointestinal: + vomiting; no change in bowel habits Physical Exam Constitutional: WD/WN, vitals as above Eyes: PERRL, conjunctivae normal, anicteric sclerae Respiratory: normal respiratory effort, lungs clear to auscultation Cardiovascular: RRR, no murmur, no edema Gastrointestinal (Abdomen): normal bowel sounds, soft, nontender, no hepatosplenomegaly Skin: no rashes, warm and dry Results & Data ([facility]) Vital Signs (Past 12 Hours) Vital Signs Temp Pulse Resp BP Pulse Ox 11/15/19 06:10 68 24 103/67 96 11/15/19 06:08 66 20 112/66 97 11/15/19 04:51 61 19 107/67 97 11/15/19 04:36 62 18 116/59 L 97 11/15/19 04:21 61 20 104/64 97 11/15/19 04:06 60 24 109/68 97 11/15/19 03:52 36.6 C 62 23 109/72 98 11/15/19 03:36 58 L 16 107/69 97 11/15/19 03:21 68 19 124/86 97 11/15/19 03:06 73 20 127/77 96 11/15/19 02:51 59 L 25 H 101/64 97 11/15/19 02:36 59 L 17 111/63 97 11/15/19 02:21 56 L 20 101/65 96 11/15/19 02:06 57 L 16 104/58 L 96 11/15/19 01:51 54 L 12 93/61 L 97 11/15/19 01:36 65 18 106/57 L 97 11/15/19 01:21 60 18 110/58 L 97 11/15/19 01:06 61 16 104/62 97 11/15/19 00:51 62 17 97/62 L 96 11/15/19 00:45 68 11/15/19 00:36 63 22 99/61 L 97 11/15/19 00:21 62 19 110/63 97 11/15/19 00:06 36.6 C 65 19 103/66 96 11/14/19 23:51 66 17 111/59 L 96 11/14/19 23:36 66 19 114/62 96 11/14/19 23:21 66 19 104/69 97 11/14/19 23:06 68 18 116/64 97 11/14/19 22:51 69 20 88/70 L 97 11/14/19 22:36 73 17 113/70 95 11/14/19 22:21 70 18 114/65 96 11/14/19 22:06 73 18 118/74 96 11/14/19 21:55 76 23 123/78 96 11/14/19 21:52 82 22 152/120 H 96 11/14/19 21:36 72 19 123/81 95 11/14/19 21:21 77 21 134/81 97 11/14/19 21:06 75 23 144/85 H 96 11/14/19 20:51 80 19 131/97 97 11/14/19 20:36 81 21 142/93 H 98 Critical Care Time Critical Care Time: Yes Total Critical Care Time: 35 I have personally spent 35 minutes of critical care time in the direct management of this patient. This is a life/limb threatening event. This includes time spent evaluating patient, direct bedside care, chart review, placing orders, interpretation of diagnostic studies, discussion with consulta nts, patient, and/or family members regarding treatment decisions, as well as other required patient management activities. This time is exclusive of all separately billable procedures, and teaching time and separate from and in addition to any other critical care service time. Resident Activity Tracking Resident Involvement: Resident Care Provided Care Provided: Adult Hospital Medicine
[2019-11-15] MEDS ORDERED: ASPIRIN 325 MG ECTAB PO SCH (09:00)
[2019-11-15] MEDS ORDERED: FAMOTIDINE 20 MG in SYRINGE 3 ML IV SCH (09:00)
[2019-11-15] MEDS: CALCIUM 600MG + VIT D 400 IU TAB PO SCH (09:34)
--- NOTE | 2019-11-15 09:34 | Electrocardiogram Report ---
Test Reason : Blood Pressure : / mmHG Vent. Rate : 072 BPM Atrial Rate : 072 BPM P-R Int : 140 ms QRS Dur : 088 ms QT Int : 390 ms P-R-T Axes : 027 040 051 degrees QTc Int : 427 ms Poor data quality, interpretation may be adversely affected Normal sinus rhythm Left ventricular hypertrophy with repolarization abnormality Abnormal ECG When compared with ECG of 14-NOV-2019 16:00, (unconfirmed) Non-specific change in ST segment in Inferior leads Nonspecific T wave abnormality now evident in Lateral leads Confirmed by Colin Felton ([id number]) on 11/15/2019 9:33:53 AM Referred By: REFERRED SELF Confirmed By:Colin Felton
--- NOTE | 2019-11-15 09:41 | XCELERA ---
[id number] \\[email or web address]\[email or web address]\[id number]
--- NOTE | 2019-11-15 09:56 | Cardiology Progress Note ---
Date of Service November 15, 2019 Assessment & Plan (1) Non-ST elevation myocardial infarction (NSTEMI): Fortunately, the patient is asymptomatic while on heparin. Proceed with cardiac catheterization later today. (2) CAD (coronary artery disease): The patient had stents placed in LAD and LCx back in 1998. He underwent a 5 vessel bypass [id number] which included an ZELAYA to the LAD, an SVG to D1 then to the distal LAD, SVG to OM1, and SVG to the RCA. (3) Essential hypertension: Adequate control on current regimen. (4) Hypercholesterolemia: Was on simvastatin as an outpatient. Would change to atorvastatin or rosuvastatin. Admission and Anticipated Discharge Date Admission Date: November 14, 2019 Subjective The patient is resting comfortably without complaints of chest pain or dyspnea. We have discussed need for cardiac catheterization. The patient understands and agrees to proceed. Physical Exam Physical Exam: In general this is a well-developed well-nourished white male in no acute distress. HEENT exam is negative. Neck reveals normal carotid upstrokes without bruits. No JVD. There is no thyromegaly. Cardiovascular exam reveals a regular rhythm with a normal S1 and S2. No murmurs. A prominent S4 is noted. Lungs are clear without rales, rhonchi, or wheezes. Abdomen is soft without bruits. Extremities reveal intact radial artery and posterior tibial pulses bilaterally. There is no peripheral edema. Results & Data ([facility]) Vital Signs (Past 12 Hours) Vital Signs Temp Pulse Pulse Resp BP BP Pulse Ox 11/15/19 08:00 68 11/15/19 07:00 36.6 C 65 18 94/60 L 98 11/15/19 06:10 68 24 103/67 96 11/15/19 06:08 66 20 112/66 97 11/15/19 04:51 61 19 107/67 97 11/15/19 04:36 62 18 116/59 L 97 11/15/19 04:21 61 20 104/64 97 11/15/19 04:06 60 24 109/68 97 11/15/19 03:52 36.6 C 62 23 109/72 98 11/15/19 03:36 58 L 16 107/69 97 11/15/19 03:21 68 19 124/86 97 11/15/19 03:06 73 20 127/77 96 11/15/19 02:51 59 L 25 H 101/64 97 11/15/19 02:36 59 L 17 111/63 97 11/15/19 02:21 56 L 20 101/65 96 11/15/19 02:06 57 L 16 104/58 L 96 11/15/19 01:51 54 L 12 93/61 L 97 11/15/19 01:36 65 18 106/57 L 97 11/15/19 01:21 60 18 110/58 L 97 11/15/19 01:06 61 16 104/62 97 11/15/19 00:51 62 17 97/62 L 96 11/15/19 00:45 68 11/15/19 00:36 63 22 99/61 L 97 11/15/19 00:21 62 19 110/63 97 11/15/19 00:06 36.6 C 65 19 103/66 96 11/14/19 23:51 66 17 111/59 L 96 11/14/19 23:36 66 19 114/62 96 11/14/19 23:21 66 19 104/69 97 11/14/19 23:06 68 18 116/64 97 11/14/19 22:51 69 20 88/70 L 97 11/14/19 22:36 73 17 113/70 95 11/14/19 22:21 70 18 114/65 96 11/14/19 22:06 73 18 118/74 96 11/14/19 21:55 76 23 123/78 96 11/14/19 21:52 82 22 152/120 H 96 Laboratory Results Troponin I peaked at 4.06. Diagnostic Findings Echocardiogram notes normal left ventricular systolic function without wall motion abnormality. There is mild LVH and mild mitral regurgitation. PG Care Time/CCT Total # of Minutes Spent Total Time Spent with Patient: Total time spent is greater than 50% in coordination of care (as documented) at patient's floor/unit and/or counseling patient: Coding Level of Care Code 90871 Subseq Hosp Care Lvl 3 Diagnoses Non-ST elevation myocardial infarction (NSTEMI) I21.4 CAD (coronary artery disease) I25.10 Essential hypertension I10 Hypercholesterolemia E78.00
[2019-11-15] MEDS ORDERED: MIDAZOLAM HCL 1 MG/ML 2ML VIAL ONE ×2 (11:54→12:44)
[2019-11-15] MEDS ORDERED: HEPARIN (PORCINE) 1000 UNIT/ML 10 ML (CATH LAB USE ONLY) ONE ×2 (11:54→13:08)
[2019-11-15] MEDS ORDERED: fentaNYL citrate 100 MCG/2 ML VIAL ONE ×2 (11:54→13:14)
[2019-11-15] MEDS ORDERED: NiCARDipine HCL INJ 2.5 MG/ML 10 ML AMP ONE (11:54)
[2019-11-15] MEDS ORDERED: NITROGLYCERIN/D5W 100MCG/ML 20ML SYR ONE (11:55)
--- NOTE | 2019-11-15 13:50 | Post Anesthesia Assessment ---
Date of Service November 15, 2019 Post Sedation Assessment Vital Signs Temp Pulse Pulse Resp BP BP Pulse Ox 11/15/19 11:30 66 19 94 11/15/19 11:10 58 L 21 102/66 97 11/15/19 11:00 98.4 F 61 68 24 106/64 98 11/15/19 10:40 61 22 109/67 97 11/15/19 10:30 59 L 20 96 11/15/19 10:10 63 22 114/67 95 11/15/19 10:00 60 20 97 11/15/19 09:41 61 20 103/69 99 11/15/19 09:30 61 14 97 11/15/19 09:10 63 21 124/73 98 11/15/19 09:00 61 20 98 11/15/19 08:40 62 24 122/72 100 11/15/19 08:30 60 21 97 11/15/19 08:10 64 23 109/69 97 11/15/19 08:00 65 20 94 11/15/19 07:58 61 22 100/65 98 11/15/19 07:40 67 21 100/56 L 96 11/15/19 07:30 65 20 97 11/15/19 07:10 62 17 94/60 L 96 11/15/19 07:03 62 21 103/57 L 95 11/15/19 07:00 97.9 F 70 65 20 94/60 L 97 11/15/19 06:30 67 20 96 11/15/19 06:11 70 15 96 11/15/19 06:10 68 24 103/67 96 11/15/19 06:08 66 20 112/66 97 11/15/19 04:51 61 19 107/67 97 11/15/19 04:36 62 18 116/59 L 97 11/15/19 04:21 61 20 104/64 97 11/15/19 04:06 60 24 109/68 97 11/15/19 03:52 97.9 F 62 23 109/72 98 11/15/19 03:36 58 L 16 107/69 97 11/15/19 03:21 68 19 124/86 97 11/15/19 03:06 73 20 127/77 96 11/15/19 02:51 59 L 25 H 101/64 97 11/15/19 02:36 59 L 17 111/63 97 11/15/19 02:21 56 L 20 101/65 96 11/15/19 02:06 57 L 16 104/58 L 96 11/15/19 01:51 54 L 12 93/61 L 97 11/15/19 01:36 65 18 106/57 L 97 11/15/19 01:21 60 18 110/58 L 97 11/15/19 01:06 61 16 104/62 97 11/15/19 00:51 62 17 97/62 L 96 11/15/19 00:45 68 11/15/19 00:36 63 22 99/61 L 97 11/15/19 00:21 62 19 110/63 97 11/15/19 00:06 97.9 F 65 19 103/66 96 11/14/19 23:51 66 17 111/59 L 96 11/14/19 23:36 66 19 114/62 96 11/14/19 23:21 66 19 104/69 97 11/14/19 23:06 68 18 116/64 97 11/14/19 22:51 69 20 88/70 L 97 11/14/19 22:36 73 17 113/70 95 11/14/19 22:21 70 18 114/65 96 11/14/19 22:06 73 18 118/74 96 11/14/19 21:55 76 23 123/78 96 11/14/19 21:52 82 22 152/120 H 96 11/14/19 21:36 72 19 123/81 95 11/14/19 21:21 77 21 134/81 97 11/14/19 21:06 75 23 144/85 H 96 11/14/19 20:51 80 19 131/97 97 11/14/19 20:36 81 21 142/93 H 98 11/14/19 20:02 74 24 139/90 98 11/14/19 19:55 97.5 F L 73 18 139/90 99 11/14/19 19:41 72 18 131/85 97 11/14/19 19:06 77 18 130/80 97 11/14/19 18:56 73 18 127/78 96 11/14/19 18:42 73 20 142/88 H 99 11/14/19 18:30 69 20 151/87 H 99 11/14/19 18:00 71 12 134/82 100 11/14/19 17:42 70 22 133/85 99 11/14/19 17:18 74 19 138/86 99 11/14/19 16:13 99 11/14/19 16:01 73 22 138/86 99 11/14/19 16:00 97.9 F 78 22 138/86 98 Recovery Score Activity: Moves 4 extremities Respiration: Deep Breath/Cough Circulation: +/-20% PreAnes Value Consciousness: Fully Awake Oxygen Saturation: O2 needed for >90% Discharge Sedation Level of Care: Fast Track Phase II Post Sedation Plan On clinical assessment, the patient appears to have tolerated the sedation without complications. Patient is recovering as anticipated. Patient will continue to be monitored by nursing and may be discharged when sedation discharge criteria are met per below protocol. Upon Completions of procedure up to 15 minutes continue every 5 minute vital signs and the P.A.R. score; then discharge to a Phase I or Fast Track to Phase I I per the following guidelines: * Discharge Patient to appropriate Phase II area if PAR is 8 or greater or return to pre- procedure baseline. The post - procedure orders will be as directed. * If PAR score is less than 8 or not return to pre-procedure baseline then patient will follow Phase I monitoring till PAR is reached for Phase II. The Phase I may be done in procedure room or may call to secure a Phase I area. * If naloxone or flumazenil are used for reversal, hold in Phase I for continued monitoring from when last reversal dose was given for a minimum of 60 minutes or longer pending the nurse and/or physician discretion of patient condition before discharge to Phase II. Please call the Sedation Physician to re-evaluate and complete post-note for discharge to Phase II area. Do NOT discharge from procedure sedation or Phase 1 until post- sedation evaluation note is complete by procedure /sedation MD Sedation Discharge Instructions to be given to the patient at discharge to home.
--- NOTE | 2019-11-15 14:08 | Cardiac Catheterization ---
[facility] Data: Front Office Medical Assistant Cardiac Status Clinical evaluation leading to the procedure CAD Presenation: Non STEMI Anginal Classification: CCS IV Heart Failure: No Cardiogenic Shock within 24 Hours: No Cardiac Arrest within 24 Hours: No Imaging Studies Past 6 Months: Yes Stress Studies Past 6 Months: No Diagnostic Physicians Name: Trace Estrada MD Status: Elective Closure Device Percutaneous Entry Location: Radial Closure Device: Radial Band Recommendations: PCI without planned CABG PCI Indication: PCI for high risk Non-ELSIE Lesion Segment Name: ostial circumflex Culprit Artery: Yes Stenosis Prior to Rx (%): 95 Chronic Total Occlusion: No IVUS: No FFR: No Pre-Procedure SY Flow: 2 Previously Treated Lesion: No Lesion Complexity: High/C Lesion Length (mm): 20 Thrombus Present: Yes Bifurcation Lesion: Yes Guidewire Across Lesion: Stenosis Post-Procedure (%): 0 Post-Procedure SY Flow: 3 Devices(s) Deployed: Yes Yes Intraprocedure Events Significant Disection: No Perforation: No Cardiac Cath Procedure Full Procedure Date November 15, 2019 Pre-Procedure Diagnosis Pre-Procedure Diagnosis: Non STEMI AUC Score AUC Score: 8 Post-Procedure Diagnosis Post-Procedure Diagnosis: Severe CAD and Successful PCI Procedure(s) Performed Procedure(s) Performed: Coronary Angiography, Left Heart Cath, Drug Eluting Stent and Femoral Artery Angiography [employer] Aide Trace Estrada MD Business Services Tech(s) Reji De La Cruz Estimated Blood Loss Estimated Blood Loss: 15 Medication(s) Medication(s): Fentanyl, Heparin, Lidocaine 1%, Nicardipine, Nitroglycerin and Versed Summary of Findings Indication: High risk NSTEMI Access: 6 Fr slender left radial artery Catheters: JL4, JR4, EBU 3.5 guide, guideliner Findings: LM -30 to 40% distal LAD -100% chronic ostial occlusion Circumflex -95% ostial stenosis, 70 to 80% proximal in-stent restenosis, 30% distal stenosis RCA -100% proximal occlusion after takeoff of high marginal branch. ZELAYA to mid LAD widely patentoccluded right after anastomosis, fills LAD retrograde to ostial occlusion and small septals. SVG to RCAwidely patent, 40% stenosis in distal RCA after anastomosis. Small PDA with diffuse disease. Moderate caliber first PLB with 95% proximal stenosis. SVG to distal LAD, first diagonalwidely patent. Apical LAD with 80% stenosis. LAD continues and gives off epicardial collaterals to occluded bifurcating OM 2 SVG to to OMoccluded LVEDP -7 -- PCI -- Antithrombotic therapy: Heparin, ticagrelor Procedure: Left main cannulated with EBU 3.5 guide Senior Clinical Research Associate 50 wire passed across lesion into distal OM Ostial circumflex lesion predilated with 2.5 compliant balloon and 2.75, 3.0 noncompliant balloons With the aid of a guide liner dilated lesion stented with 3.0 x 22 mm [place] drug-eluting stent extending from proximal left main into circumflex and overlapping most of prior stent. Stent post-dilated with 3.0 noncompliant balloon IC vasodilators administered for spasm Post procedure SY 3 flow, stent well expanded with minimal residual stenosis and no apparent cardiac complications. Arterial Closure: TR band Summary: 1. Severe multivessel chronic vessel coronary artery disease -95% ostial circumflex 100% chronic ostial LAD 100% chronic proximal RCA 2. Patent ZELAYA to mid LAD, SVG to distal LAD and diagonal, SVG to RCA. 3. Severe proximal PLB (95%) and apical LAD (80%) disease downstream from vein graft anastomosis. 4. Normal intracardiac filling pressure 5. Successful PCI of ostial circumflex with single drug-eluting stent extending from left main into proximal circumflex overlapping prior stent (3.0 x 22 mm [place]). Recommendations: Return to ICU for continued monitoring Continue DAPT with aspirin, ticagrelor for at least 1 year Maximize antianginal therapy and statin, and ASCVD risk factor modification Consult cardiac Rehab If recurrent exertional symptoms consider intervention to proximal PLB Hemodynamics Rest Ao:: 100/43/72 Final Ao: 100/41/54 LV: 108/7 Recommendations Recommendations: PCI without planned CABG Specimens Specimens: None Radiation Exposure (mGy) 3239 Contrast (mls) 175 Fluids (cc crystalloids) Fluids (cc crystalloids): 155 Drains Drains: none Anesthesia moderate Procedural Complication(s) None Disposition ICU I attest to the content of the Intraoperative Record and any orders documented therein. Any exceptions are noted below. [facility] [place] Card Cath Procedure Codes Cardiac Catheterization Procedure 1: Cardiovascular Cath Procedures: 31671 Coronaries & LHC (+/-LV) & Grafts/IM (arterial & venous) Moderate Sedation Procedure 1: Sedation/Anesthesia: 60870 Mod Sedation by the same physician;Init15 Min Child Age 5 & Up Procedure 2: Sedation/Anesthesia: 40092 Mod Sedation by the same physician; Ea [id number] Minutes Stenting Procedure 1: Cardiovascular Stent Procedures: 96544 Perc transcatheter placement of intracoronary stent(s), with ang PG Care Time/CCT Total # of Minutes Spent Total Time Spent with Patient: Total time spent is greater than 50% in coordination of care (as documented) at patient's floor/unit and/or counseling patient:
[2019-11-15] MEDS ORDERED: SODIUM CHLORIDE 0.9% 1000ML 1,000 ML IV SCH (14:45)
--- NOTE | 2019-11-15 18:24 | Hospitalist Progress Note ---
Date of Service November 15, 2019 Assessment & Plan (1) Non-ST elevation myocardial infarction (NSTEMI): Chest pain started around 9am on day of admission. Persistency worse around 3pm on day of admission. Out of cardiac chest pain around 7:30pm after morphine given. Interestingly no EKG changes on initial EKG although possibly some developing ST depression in lateral leads on repeat. Patient had cardiac cath on 11/15 1. Severe multivessel chronic vessel coronary artery disease -95% ostial circumflex 100% chronic ostial LAD 100% chronic proximal RCA 2. Patent ZELAYA to mid LAD, SVG to distal LAD and diagonal, SVG to RCA. 3. Severe proximal PLB (95%) and apical LAD (80%) disease downstream from vein graft anastomosis. 4. Normal intracardiac filling pressure 5. Successful PCI of ostial circumflex with single drug-eluting stent extending from left main into proximal circumflex overlapping prior stent (3.0 x 22 mm [place]). Recommendations: Return to ICU for continued monitoring Continue DAPT with aspirin, ticagrelor for at least 1 year Maximize antianginal therapy and statin, and ASCVD risk factor modification Consult cardiac Rehab Will continue to monitor. Likely discharge on 11/16 (2) Gastritis: Epigastric pain left after morphine taken away chest pain and radiating pain to neck and arm. GI cocktail given with complete relief of epigastric pain. Will continue famotidine 20mg IV daily. (3) Peripheral vascular disease: Noted history of this. DP/PT b/l easily palpable. (4) Hypercholesterolemia: Continue simvastatin, LDL is at goal at 62. (5) Osteoporosis: Hold calcium supplementation at this time. Admission and Anticipated Discharge Date Admission Date: November 14, 2019 Subjective Patient seen in evening. Patient reports feeling well except for having nausea. However, he states that he does not want to take any medication at this time. Review of Systems Review of Systems: All systems reviewed & are unremarkable except as noted in HPI & below Physical Exam Physical Exam: Constitutional: well developed and + acute distress (substernal chest pain); + not well nourished ENMT: external ear and nose normal, oropharynx normal Neck: trachea midline, no thyromegaly Respiratory: normal respiratory effort, lungs clear to auscultation Cardiovascular: Rate/Rhythm: regular rate and regular rhythm Heart Sounds: normal S1 and normal S2; Gastrointestinal (Abdomen): Inspection/Auscultation: abdomen normal to inspection and normal bowel sounds; abdomen not distended Percussion/Palpation: + abdomen tender (epigastric) and abdomen soft; no guarding and abdomen not rigid Musculoskeletal: no cyanosis or clubbing, extremities motor strength 5/5 Skin: no rashes, warm and dry Neurologic: moves all extremities and awake; no focal motor deficits and not confused Speech / Cognition: normal speech Motor/Sensory: no tremor and no pronator drift Psychiatric: A+Ox3, euthymic affect Lymphatic: no cervical or axillary lymphadenopathy Results & Data ([facility]) Vital Signs (Past 12 Hours) Vital Signs Temp Pulse Pulse Resp BP BP Pulse Ox 11/15/19 18:00 36.8 C 56 L 16 99 11/15/19 17:45 60 21 100 11/15/19 17:31 62 21 108/95 93 11/15/19 17:30 36.8 C 61 19 98 11/15/19 17:17 64 23 123/70 99 11/15/19 17:15 62 20 97 11/15/19 17:01 63 24 139/80 97 11/15/19 17:00 69 18 95 11/15/19 16:46 66 20 147/84 H 97 11/15/19 16:45 36.6 C 63 82 21 147/84 H 98 11/15/19 16:31 80 19 126/79 97 11/15/19 16:30 58 L 14 98 11/15/19 16:16 57 L 18 122/71 100 11/15/19 16:15 61 14 97 11/15/19 16:01 68 15 129/86 98 11/15/19 16:00 36.8 C 60 60 18 112/90 95 11/15/19 15:46 60 13 126/68 99 11/15/19 15:45 36.6 C 57 L 15 99 11/15/19 15:31 55 L 16 125/72 99 11/15/19 15:30 60 18 97 11/15/19 15:17 62 20 121/75 98 11/15/19 15:15 60 18 97 11/15/19 15:01 63 17 142/77 H 98 11/15/19 15:00 64 21 98 11/15/19 14:46 60 18 118/71 97 11/15/19 14:45 60 21 99 11/15/19 14:32 60 17 98 11/15/19 14:31 60 19 125/73 99 11/15/19 14:23 36.5 C 20 11/15/19 14:16 114/73 93 11/15/19 14:00 60 18 119/75 98 11/15/19 13:45 63 18 128/70 98 11/15/19 11:30 66 19 94 11/15/19 11:10 58 L 21 102/66 97 11/15/19 11:00 36.9 C 61 68 24 106/64 98 11/15/19 10:40 61 22 109/67 97 11/15/19 10:30 59 L 20 96 11/15/19 10:10 63 22 114/67 95 11/15/19 10:00 60 20 97 11/15/19 09:41 61 20 103/69 99 11/15/19 09:30 61 14 97 11/15/19 09:10 63 21 124/73 98 11/15/19 09:00 61 20 98 11/15/19 08:40 62 24 122/72 100 11/15/19 08:30 60 21 97 11/15/19 08:10 64 23 109/69 97 11/15/19 08:00 65 20 94 11/15/19 07:58 61 22 100/65 98 11/15/19 07:40 67 21 100/56 L 96 11/15/19 07:30 65 20 97 11/15/19 07:10 62 17 94/60 L 96 11/15/19 07:03 62 21 103/57 L 95 11/15/19 07:00 36.6 C 70 65 20 94/60 L 97 11/15/19 06:30 67 20 96 PG Care Time/CCT Total # of Minutes Spent Total Time Spent with Patient: Total time spent is greater than 50% in coordination of care (as documented) at patient's floor/unit and/or counseling patient: Coding Level of Care Code 91942 Subseq Hosp Care Lvl 3 Diagnoses Non-ST elevation myocardial infarction (NSTEMI) I21.4 Gastritis K29.00 Chronicity: acute Gastritis bleeding: without bleeding Gastritis type: unspecified gastritis Peripheral vascular disease I73.9 Hypercholesterolemia E78.00 Osteoporosis M81.0 Osteoporosis type: unspecified Presence of current pathological fracture: without current pathological fracture Time Spent (min) 35 (1) Osteoporosis Osteoporosis type: unspecified Presence of current pathological fracture: without current pathological fracture Qualified Code(s): M81.0 - Age-related osteoporosis without current pathological fracture (2) Gastritis Chronicity: acute Gastritis bleeding: without bleeding Gastritis type: unspecified gastritis Qualified Code(s): K29.00 - Acute gastritis without bleeding
--- NOTE | 2019-11-15 18:28 | Billing Data ---
Date of Service November 15, 2019 Coding Level of Care Code Critical Care 1st - mins
[2019-11-16 04:29] LABS: Basophils # (auto) 0.02 K/uL (0-0.2); Basophils % (auto) 0.2 %; Eosinophils % (auto) 1.8 %; Hematocrit (blood only) 48.6 % (42-52); Hemoglobin 16.6 g/dL (14.0-18.0); Immature Granulocytes # (auto) 0.03 K/uL (0.00-0.02); Immature Granulocytes % (auto) 0.3 %; Lymphocytes # (auto) 2.37 K/uL (1.2-3.4); Lymphocytes % (auto) 21.9 %; Mean Corpuscular Hemoglobin 31.1 pg (25-34); Mean Corpuscular Hgb Conc 34.2 g/dL (32-36); Mean Corpuscular Volume 91.2 fL (80-100); Mean Platelet Volume 9.9 fL (7.4-10.4); Monocytes # (auto) 0.97 K/uL (0.11-0.59); Neutrophils # (auto) 7.24 K/uL (1.4-6.5); Neutrophils % (auto) 66.8 %; Platelet Count 321 K/uL (130-400); RDW Coefficient of Variation 14.5 % (11.5-14.5); RDW Standard Deviation 48.8 fL (36.4-46.3); Red Blood Count 5.33 M/uL (4.7-6.1); White Blood Count 10.83 K/uL (4.8-10.8)
[2019-11-16 04:50] LABS: BUN Creatinine Ratio 14.2 (10-20); Calcium 9.4 mg/dl (8.5-10.1); Creatinine Clr Calc Pharmacy 66.8 ml/min; Est GFR (African American) 93.9; Magnesium 2.2 mg/dl (1.8-2.4); Potassium 4.1 mmol/L (3.5-5.1)
[2019-11-16 04:57] LABS: Phosphorus 3.4 mg/dl (2.5-4.9)
[2019-11-16 06:03] LABS: Estimated Average Glucose 117 mg/dl; Hemoglobin A1C 5.7 % (4.5-5.6)
--- NOTE | 2019-11-16 06:52 | Critical Care Progress Note ---
Date of Service November 16, 2019 Assessment & Plan (1) Non-ST elevation myocardial infarction (NSTEMI): Reason Critically Ill: Mr. Murphy is a 64-year-old male with significant history of cardiovascular disease status post CABG x5, hypertension, hyperlipidemia, and peripheral vascular disease presenting with ongoing chest discomfort with elevated troponin without significant EKG changes. Requiring heparin and nitroglycerin drips for symptomatic management. Requiring close hemodynamic monitoring. NEURO - CAM ICU: NEGATIVE CARDIAC/VASCULAR - Patient w/a hx of CAD s/p PTCI & CABG x 5 NSTEMI -cardiac cath on 11/15/2019 revealed chronic multivessel CAD. Pt underwent PCI of ostial circumflex w/ZOEY x 1 on 11/15/2019 -Continue DAPT x 1 year -continue secondary prevention meds - metoprolol. Statin increased to high intensity dose. -Cardiology following, appreciate recommendations ECHO - EF 50-55%, no RMWA Tolerated trial of ambulation well. Stable for downgrade out of ICU today. RESPIRATORY - No h/o pulmonary disease. Saturating well on room air. GI/NUTRITION - Heart healthy diet prn zofran for nausea RENAL/LYTES - No significant electrolyte derangements. - No concerns at this time. ENDO - HbA1c 5.7% BSGs per unit protocol. ISS --> gtt per unit policy. HEME - Stable H&H. ID - No signs/symptoms of infection noted LINES/IV ACCESS - PIVs x2 DVT PROPHYLAXIS - Ambulation, SCDs Thank you for allowing us to participate in the care of this patient. Please refer to my attending physician's documentation for any further recommendations. Admission and Anticipated Discharge Date Admission Date: November 14, 2019 Supervising Physician Co-Signing Physician Notes Dr. Craft was resident physician during care of patient. I separately evaluated patient for henry portions of the history and the exam. I was present during the critical portion of medical decision making, and I discussed the case with the resident. I generally agree with the findings and plan. Patient was discussed in multidisciplinary rounds, stable for discharge versus downgrade to telemetry. Subjective Mr. Cannon reports nausea that occurred throughout the afternoon and evening yesterday. He denies any recurrence of his chest pain. He denies shortness of breath, palpitations, fever or chills. He is anxious to leave the hospital. Review of Systems Constitutional: no fever and no chills Respiratory: no cough and no dyspnea Cardiovascular: no chest pain, no palpitations and no edema Gastrointestinal: + nausea; no abdominal pain and no vomiting Physical Exam Constitutional: WD/WN, vitals as above Eyes: PERRL, conjunctivae normal, anicteric sclerae Respiratory: normal respiratory effort, lungs clear to auscultation Cardiovascular: RRR, no murmur, no edema Gastrointestinal (Abdomen): normal bowel sounds, soft, nontender, no hepatosplenomegaly Skin: no rashes, warm and dry Results & Data ([facility]) Vital Signs (Past 12 Hours) Vital Signs Temp Pulse Resp BP Pulse Ox 11/16/19 06:32 66 15 142/79 H 98 11/16/19 05:32 66 17 121/68 97 11/16/19 04:32 61 24 127/74 97 11/16/19 04:00 36.5 C 11/16/19 03:32 62 15 117/69 98 11/16/19 02:32 66 18 103/53 L 98 11/16/19 01:32 62 18 108/59 L 96 11/16/19 00:32 65 16 114/69 96 11/16/19 00:23 36.5 C 11/16/19 00:00 60 18 96 11/15/19 23:59 59 L 11/15/19 23:32 59 L 12 121/74 96 11/15/19 22:32 60 17 134/70 97 11/15/19 21:32 63 18 128/75 98 11/15/19 21:03 69 15 117/67 97 11/15/19 21:00 67 21 97 11/15/19 20:32 68 20 104/55 L 97 11/15/19 20:00 68 19 97 11/15/19 19:55 36.5 C 11/15/19 19:33 70 21 98 11/15/19 19:32 66 21 132/75 97 11/15/19 19:00 64 21 97 Resident Activity Tracking Resident Involvement: Resident Care Provided Care Provided: Adult Hospital Medicine
[2019-11-16] MEDS: METOPROLOL TARTRATE 100 MG TAB PO SCH (08:12)
[2019-11-16] MEDS: TICAGRELOR 90 MG TAB PO SCH (08:13)
[2019-11-16] MEDS: CALCIUM 600MG + VIT D 400 IU TAB PO SCH (08:13)
[2019-11-16] MEDS ORDERED: ASPIRIN 81 MG ECTAB PO SCH (09:00)
[2019-11-16] MEDS ORDERED: ATORVASTATIN 40 MG TAB PO SCH (09:00)
--- NOTE | 2019-11-16 09:37 | Cardiology Progress Note ---
Date of Service November 16, 2019 Assessment & Plan (1) Non-ST elevation myocardial infarction (NSTEMI): --multivessel disease post PCI of ostial circumflex with single ZOEY extending from LM into prox circumflex overlapping prior stent 2. Hypertension 3. Dyslipidemia Patient doing well post PCI yesterday. No recurrent chest pain. Well perfused on exam without signs of heart failure. No access site complications. --if tolerate walking halls OK to discharge from cardiac standpoint --DAPT with ASA, ticagrelor at least one year --Transitioned to high intensity statin --Continue beta tish --Consult cardiac rehab --Followup in cardiology clinic 2 weeks Admission and Anticipated Discharge Date Admission Date: November 14, 2019 Subjective Patient is feeling well today post cardiac catheterization with PCI yesterday of ostial circumflex with single ZOEY extending from LM into prox circumflex overlapping prior stent (3.0 x 22 mm Jose). Otherwise severe, chronic multivessel CAD (100% chronic ostial LAD, 100% chronic proximal RCA). Patent ZELAYA to mid LAD, SVG to distal LAD and diagonal, SVG to RCA. Severe proximal PLB (95%) and apical LAD (80%) disease downstream from vein graft anastomosis. He is anxious to go home. No recurrent chest pain. No shortness of breath, orthopnea or PND. No issues at right radial access site. Tele reviewed, no events. Review of Systems Review of Systems: All systems reviewed & are unremarkable except as noted in HPI & below Physical Exam Physical Exam: General: No acute distress, comfortable. HEENT: Head is normal. PERRLA. EOMI. Sclerae anicteric. Ears, nose and throat unremarkable. Mucous membranes moist. Neck: Normal carotid upstrokes, no bruits. No appreciable JVD. Lungs: Clear to auscultation bilaterally without rales, rhonchi or wheezes. Cardiac: Regular rate and rhythm. S1-S2 normal. No appreciable murmur, gallop or rub. Extremities/vascular: -- Well perfused. No peripheral edema. --Radial, DP and PT pulses 2+ bilaterally --R radial access site without hematoma or ecchymosis. Distal pulse, sensation intact. Skin: No rash or abnormal lesions. Normal turgor. Neurologic: Nonfocal Psychiatric: Affect appropriate. Alert and oriented. Results & Data ([facility]) Vital Signs (Past 12 Hours) Vital Signs Temp Pulse Pulse Resp BP BP Pulse Ox 11/16/19 08:00 36.4 C L 66 66 18 142/79 H 98 11/16/19 06:32 66 15 142/79 H 98 11/16/19 05:32 66 17 121/68 97 11/16/19 04:32 61 24 127/74 97 11/16/19 04:00 36.5 C 11/16/19 03:32 62 15 117/69 98 11/16/19 02:32 66 18 103/53 L 98 11/16/19 01:32 62 18 108/59 L 96 11/16/19 00:32 65 16 114/69 96 11/16/19 00:23 36.5 C 11/16/19 00:00 60 18 96 11/15/19 23:59 59 L 11/15/19 23:32 59 L 12 121/74 96 11/15/19 22:32 60 17 134/70 97 11/15/19 21:32 63 18 128/75 98 Laboratory Results Laboratory Results - last 24 hr 11/15/19 11/15/19 11/15/19 11:29 13:04 13:30 WBC RBC Hgb Hct MCV MCH MCHC RDW Std Deviation RDW Coeff of Roc Plt Count MPV Immature Gran % (Auto) Neut % (Auto) Lymph % (Auto) [place] % (Auto) Eos % (Auto) Baso % (Auto) Immature Gran # (Auto) Neut # (Auto) Lymph # (Auto) [place] # (Auto) Eos # (Auto) Baso # (Auto) Activ Coag Time Kaolin 241 H 285 H Sodium Potassium Chloride Carbon Dioxide Anion Gap BUN Creatinine Est Cr Clr Drug Dosing Est GFR ( Amer) Est GFR (Non-Af Amer) BUN/Creatinine Ratio Glucose POC Glucose 87 Estimat Average Glucose Hemoglobin A1c Calcium Phosphorus Magnesium Triglycerides Cholesterol LDL Cholesterol, Calc VLDL Cholesterol, Calc HDL Cholesterol Cholesterol/HDL Ratio 11/15/19 11/16/19 11/16/19 21:05 04:05 04:05 WBC 10.83 H RBC 5.33 Hgb 16.6 Hct 48.6 MCV 91.2 MCH 31.1 MCHC 34.2 RDW Std Deviation 48.8 H RDW Coeff of Roc 14.5 Plt Count 321 MPV 9.9 Immature Gran % (Auto) 0.3 Neut % (Auto) 66.8 Lymph % (Auto) 21.9 [place] % (Auto) 9.0 Eos % (Auto) 1.8 Baso % (Auto) 0.2 Immature Gran # (Auto) 0.03 H Neut # (Auto) 7.24 H Lymph # (Auto) 2.37 [place] # (Auto) 0.97 H Eos # (Auto) 0.20 Baso # (Auto) 0.02 Activ Coag Time Kaolin Sodium 139 Potassium 4.1 Chloride 106 Carbon Dioxide 30 Anion Gap 3.0 BUN 14 Creatinine 0.97 Est Cr Clr Drug Dosing 66.8 Est GFR ( Amer) 93.9 Est GFR (Non-Af Amer) 81.0 BUN/Creatinine Ratio 14.2 Glucose 95 POC Glucose 92 Estimat Average Glucose Hemoglobin A1c Calcium 9.4 Phosphorus 3.4 Magnesium 2.2 Triglycerides 106 Cholesterol 151 LDL Cholesterol, Calc 62 VLDL Cholesterol, Calc 21 HDL Cholesterol 68 Cholesterol/HDL Ratio 2 11/16/19 04:05 WBC RBC Hgb Hct MCV MCH MCHC RDW Std Deviation RDW Coeff of Roc Plt Count MPV Immature Gran % (Auto) Neut % (Auto) Lymph % (Auto) [place] % (Auto) Eos % (Auto) Baso % (Auto) Immature Gran # (Auto) Neut # (Auto) Lymph # (Auto) [place] # (Auto) Eos # (Auto) Baso # (Auto) Activ Coag Time Kaolin Sodium Potassium Chloride Carbon Dioxide Anion Gap BUN Creatinine Est Cr Clr Drug Dosing Est GFR ( Amer) Est GFR (Non-Af Amer) BUN/Creatinine Ratio Glucose POC Glucose Estimat Average Glucose 117 Hemoglobin A1c 5.7 H Calcium Phosphorus Magnesium Triglycerides Cholesterol LDL Cholesterol, Calc VLDL Cholesterol, Calc HDL Cholesterol Cholesterol/HDL Ratio PG Care Time/CCT Total # of Minutes Spent Total Time Spent with Patient: Total time spent is greater than 50% in coordination of care (as documented) at patient's floor/unit and/or counseling patient: Coding Level of Care Code 80334 Subseq Hosp Care Lvl 3 Diagnoses Non-ST elevation myocardial infarction (NSTEMI) I21.4
--- NOTE | 2019-11-16 15:55 | Billing Data ---
Date of Service November 16, 2019 Coding Level of Care Code 39082 Subseq Hosp Care Lvl 1
== END 2019-11-16 10:34 | disposition home or self-care (01) | DRG 247 ==
LOC: ED 15:50 → 1E 19:16 → SUATTDRO 19:16 → 1E 19:42